=== PATIENT | female | born 1940 | race Caucasian/White ===

== ENCOUNTER → 2016-06-28 | Outpatient (CLI) | payer MEDICARE, OTHER | LOC: KOH-I 06-19 08:30 → US 06-20 08:15 | DX: R17 Unspecified jaundice (principal); D50.9 Iron deficiency anemia, unspecified; Z90.49 Acquired absence of other specified parts of digestive tract | CPT/HCPCS: 36415; 76705; 80074; 80076; 82103; 82728; 83540; 83550; 86039; 86255 ==

== ENCOUNTER → 2016-08-14 | Outpatient (CLI) | payer MEDICARE, OTHER | LOC: KOH-I 13:13 | DX: S05.12XA Contusion of eyeball and orbital tissues, left eye, initial encounter (principal); I62.03 Nontraumatic chronic subdural hemorrhage; R55 Syncope and collapse; R22.0 Localized swelling, mass and lump, head | CPT/HCPCS: 70551 ==

== ENCOUNTER → 2016-08-22 | Outpatient (CLI) | payer MEDICARE, OTHER | LOC: HEART 5 13:59 | DX: R06.02 Shortness of breath (principal); I25.810 Atherosclerosis of coronary artery bypass graft(s) without angina pectoris; Z95.1 Presence of aortocoronary bypass graft | CPT/HCPCS: 93306 ==

== ENCOUNTER → 2020-06-06 | Outpatient (CLI) | payer MEDICARE, OTHER | LOC: MRI 10:31 | DX: D32.9 Benign neoplasm of meninges, unspecified (principal); R51.9 Headache, unspecified; G31.9 Degenerative disease of nervous system, unspecified; R90.82 White matter disease, unspecified | CPT/HCPCS: 36415; 70553; 82565; A9577 ==

== ENCOUNTER 2021-05-13 13:23 | Emergency (ER) | payer MEDICARE, OTHER ==
[2021-05-13 14:53] LABS: HEMOGLOBIN 12.6 gm/dl (12.3-15.3); RED BLOOD COUNT 3.87 M/UL (4.00-5.10); WHITE BLOOD COUNT 7.9 K/UL (4.5-11.0)
[2021-05-13 15:21] LABS: BUN/CREATININE RATIO 19 (0-10)
== END 2021-05-13 19:21 | disposition home or self-care (01) ==
LOC: ER1 13:23
PROVIDERS: Family Medicine
DX: R07.9 Chest pain, unspecified (principal); R42 Dizziness and giddiness; Z20.822 Contact with and (suspected) exposure to COVID-19; E11.9 Type 2 diabetes mellitus without complications; F11.20 Opioid dependence, uncomplicated
CPT/HCPCS: 70450; 71045; 72100; 80053; 82550; 82553; 83605; 84439; 84443; 84484; 85025; 93005; 99285; U0002